=== PATIENT | female | born 1940 | race Caucasian/White ===

== ENCOUNTER 2016-06-02 15:24 | Emergency (ER) | payer MEDICARE, OTHER ==
[~2016-06-02] VITALS: Ht 154.9 cm; Wt 50.5 kg
[2016-06-02 15:24] VITALS: Ht 154.9 cm; Wt 50.5 kg
[~2016-06-02 15:24] MED LIST: ALEN70TA48 PO; ASCO-324 PO; CALCIUM LIQUID PO; MAGN250T PO; ONDA4TAB4 PO
--- OUTSIDE RECORDS SUMMARY | 2016-06-02 15:32 | XMS REPORT | Continuity of Care Document ---
Author Author [facility] Organization [facility] Address Unknown Phone Unavailable Allergies Active Description Code Type Severity Reaction Onset Reported/Identified Relationship to Patient Clinical Status Yes No Known Allergies No Known Allergies Drug Allergy Unknown N/A 06/20/2015 Medications Problems Date Dx Coded Attending Type Code Diagnosis Diagnosed By 06/20/2015 Cate Madera MD E78.5 HYPERLIPIDEMIA, UNSPECIFIED 06/20/2015 Cate Madera MD E83.39 OTHER DISORDERS OF PHOSPHORUS METABOLISM 06/20/2015 Cate Madera MD E83.42 HYPOMAGNESEMIA 06/20/2015 Cate Madera MD E83.51 HYPOCALCEMIA 06/20/2015 Cate Madera MD E87.1 HYPO-OSMOLALITY AND HYPONATREMIA 06/20/2015 Cate Madera MD E87.6 HYPOKALEMIA 06/20/2015 Cate Madera MD G93.6 CEREBRAL EDEMA 06/20/2015 Cate Madera MD I61.9 NONTRAUMATIC INTRACEREBRAL HEMORRHAGE, UNSPECIFIED 06/20/2015 Cate Madera MD R11.2 NAUSEA WITH VOMITING, UNSPECIFIED 06/20/2015 Cate Madera MD R73.9 HYPERGLYCEMIA, UNSPECIFIED 07/26/2015 Jeanie Gay MD P F G93.6 CEREBRAL EDEMA 07/26/2015 Jeanie Gay MD P F I10 ESSENTIAL (PRIMARY) HYPERTENSION 07/26/2015 Jeanie Gay MD P F I61.1 NONTRAUMATIC INTCRBL 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, COR 07/26/2015 Jeanie Gay MD P F M19.90 UNSPECIFIED OSTEOARTHRITIS, UNSPECIFIED SITE 07/26/2015 Victor Hugo HERRERA, Jeanie P A R51 HEADACHE 07/26/2015 Jeanie Gay MD P F Z86.73 PRSNL HX OF TIA (TIA), 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 Procedures Code Description Performed By Performed On [id number] EXCISION OF BRAIN, OPEN APPROACH, DIAGNOSTIC Landon Ayon MD 07/26/2015 [id number] EXTIRPATION OF MATTER FROM BRAIN, OPEN APPROACH Landon Ayon MD 07/26/2015 59RR55M INSERTION OF INFUSION DEV INTO SUP VENA CAVA, ETELVINA Gay MD, Jeanie P 07/26/2015 Results Test Result Range PROTHROMBIN TIME WITH INR - 06/20/15 19:21 INTERNATIONAL NORMAL RATIO 1.3 0.9-1.1 PROTHROMBIN TIME 14.4 sec 9.3-12.2 CBC W/DIFF - 06/21/15 04:26 GRANULOCYTE # 4.7 k/cumm 2.0-9.0 GRANULOCYTE % 69 % 50-75 LYMPHOCYTE # 1.1 k/cumm 1.0-4.0 LYMPHOCYTE % 17 % 20-30 MEAN CELL HGB 32.3 pg 27.0-33.0 MEAN CELL HGB CONCENTRATION 35.3 g/dL 32.0-37.0 MEAN CELL VOLUME 91.5 fl 80.0-100.0 MONOCYTE # 1.0 k/cumm 0.1-1.0 MONOCYTE % 14 % 4-6 RED BLOOD CELL 3.65 m/cumm 4.00-6.00 RED CELL DISTRIBUTION WIDTH 12.2 % 11.0- 15.6 WHITE BLOOD CELL 6.9 k/cumm 5.0-10.0 HEMOGLOBIN 11.8 gm/dL 12.0-16.0 HEMATOCRIT 33.4 % 37.0-47.0 PLATELET COUNT 213 k/cumm 150-400 METABOLIC PANEL, BASIC - 06/21/15 04:26 POTASSIUM 2.8 mmol/L 3.5-5.3 EST GFR (MDRD) > 60 mL/min > 59 ANION GAP 12 mmol/L 5-15 EST CrCl (CG) > 60 mL/min > 59 GLUCOSE 79 mg/dL 70-99 CALCIUM 7.8 mg/dL 8.5-10.1 BLOOD UREA NITROGEN 9 mg/dL 7-20 CREATININE 0.4 mg/dL 0.6-1.0 SODIUM 135 mmol/L 135-148 CHLORIDE 99 mmol/L 98-110 CARBON DIOXIDE 24 mmol/L 21-32 GLUCOSE (POC) - 06/21/15 15:40 GLUCOSE (POC) 288 mg/dL 70-99 GLUCOSE (POC) - 06/21/15 15:47 GLUCOSE (POC) 300 mg/dL 70-99 GLUCOSE (POC) - 06/21/15 16:51 GLUCOSE (POC) 262 mg/dL 70-99 HEMOGLOBIN A1C - 06/21/15 17:10 HEMOGLOBIN A1C 5.4 % < 5.7 GLUCOSE (POC) - 06/21/15 19:41 GLUCOSE (POC) 179 mg/dL 70-99 METABOLIC PANEL, BASIC - 06/22/15 06:28 POTASSIUM 3.4 mmol/L 3.5-5.3 EST GFR (MDRD) > 60 mL/min > 59 ANION GAP 10 mmol/L 5-15 EST CrCl (CG) 60 mL/min > 59 GLUCOSE 106 mg/dL 70-99 CALCIUM 8.2 mg/dL 8.5-10.1 BLOOD UREA NITROGEN 8 mg/dL 7-20 CREATININE 0.6 mg/dL 0.6-1.0 SODIUM 138 mmol/L 135-148 CHLORIDE 103 mmol/L 98-110 CARBON DIOXIDE 25 mmol/L 21-32 PHOSPHORUS - 06/22/15 06:28 PHOSPHORUS 1.5 mg/dL 2.5-4.9 MAGNESIUM - 06/22/15 06:28 MAGNESIUM 1.6 mg/dL 1.8-2.4 LIPID PANEL - 06/22/15 06:28 CHOLESTEROL/HDL RATIO 2.7 < 5.0 LDL CHOLESTEROL 98 mg/dL < 100 VLDL CHOLESTEROL 11 mg/dL < 30 TRIGLYCERIDES 54 mg/dL < 150 CHOLESTEROL 173 mg/dL < 200 HDL CHOLESTEROL 64 mg/dL > 39 GLUCOSE (POC) - 06/22/15 10:54 GLUCOSE (POC) 136 mg/dL 70-99 GLUCOSE (POC) - 06/22/15 15:20 GLUCOSE (POC) 131 mg/dL 70-99 GLUCOSE (POC) - 06/22/15 19:56 GLUCOSE (POC) 136 mg/dL 70-99 GLUCOSE (POC) - 06/23/15 05:23 GLUCOSE (POC) 94 mg/dL 70-99 GLUCOSE (POC) - 06/23/15 09:58 GLUCOSE (POC) 76 mg/dL 70-99 CBC - 06/23/15 13:10 MEAN CELL HGB 31.8 pg 27.0-33.0 MEAN CELL HGB CONCENTRATION 33.9 g/dL 32.0-37.0 MEAN CELL VOLUME 93.8 fl 80.0-100.0 RED BLOOD CELL 4.06 m/cumm 4.00-6.00 RED CELL DISTRIBUTION WIDTH 12.9 % 11.0- 15.6 WHITE BLOOD CELL 7.6 k/cumm 5.0-10.0 HEMOGLOBIN 12.9 gm/dL 12.0-16.0 HEMATOCRIT 38.1 % 37.0-47.0 PLATELET COUNT 257 k/cumm 150-400 RENAL FUNCTION PANEL - 06/23/15 13:10 POTASSIUM 3.6 mmol/L 3.5-5.3 EST GFR (MDRD) > 60 mL/min > 59 ANION GAP 11 mmol/L 5-15 EST CrCl (CG) > 60 mL/min > 59 GLUCOSE 84 mg/dL 70-99 CALCIUM 8.6 mg/dL 8.5-10.1 BLOOD UREA NITROGEN 7 mg/dL 7-20 CREATININE 0.6 mg/dL 0.6-1.0 SODIUM 136 mmol/L 135-148 CHLORIDE 98 mmol/L 98-110 CARBON DIOXIDE 27 mmol/L 21-32 ALBUMIN 3.3 gm/dL 3.4-5.0 PHOSPHORUS 3.4 mg/dL 2.5-4.9 MAGNESIUM - 06/23/15 13:10 MAGNESIUM 2.1 mg/dL 1.8-2.4 CBC W/DIFF - 07/27/15 01:57 GRANULOCYTE # 4.9 k/cumm 2.0-9.0 GRANULOCYTE % 73 % 50-75 LYMPHOCYTE # 1.1 k/cumm 1.0-4.0 LYMPHOCYTE % 16 % 20-30 MEAN CELL HGB 32.5 pg 27.0-33.0 MEAN CELL HGB CONCENTRATION 34.6 g/dL 32.0-37.0 MEAN CELL VOLUME 94.1 fl 80.0-100.0 MONOCYTE # 0.7 k/cumm 0.1-1.0 MONOCYTE % 10 % 4-6 RED BLOOD CELL 3.75 m/cumm 4.00-6.00 RED CELL DISTRIBUTION WIDTH 13.4 % 11.0- 15.6 WHITE BLOOD CELL 6.6 k/cumm 5.0-10.0 HEMOGLOBIN 12.2 gm/dL 12.0-16.0 HEMATOCRIT 35.3 % 37.0-47.0 PLATELET COUNT 236 k/cumm 150-400 PROTHROMBIN TIME WITH INR - 07/27/15 01:57 INTERNATIONAL NORMAL RATIO 1.0 0.9-1.1 PROTHROMBIN TIME 10.9 sec 9.3-12.2 METABOLIC PANEL, COMPREHN - 07/27/15 01:57 POTASSIUM 4.1 mmol/L 3.5-5.3 EST GFR (MDRD) > 60 mL/min > 59 ANION GAP 12 mmol/L 5-15 EST CrCl (CG) 60 mL/min > 59 GLUCOSE 104 mg/dL 70-99 CALCIUM 8.2 mg/dL 8.5-10.1 BLOOD UREA NITROGEN 17 mg/dL 7-20 CREATININE 0.6 mg/dL 0.6-1.0 SODIUM 134 mmol/L 135-148 CHLORIDE 101 mmol/L 98-110 AST/SGOT 14 Units/L 10-37 ALT/SGPT 16 Units/L < 66 CARBON DIOXIDE 21 mmol/L 21-32 TOTAL PROTEIN 6.9 gm/dL 6.4-8.2 ALBUMIN 3.3 gm/dL 3.4-5.0 BILI TOTAL 1.1 mg/dL 0.0-1.0 ALKALINE PHOSPHATASE TOTAL 59 IU/L 45- 117 PHOSPHORUS - 07/27/15 01:57 PHOSPHORUS 3.3 mg/dL 2.5-4.9 MAGNESIUM - 07/27/15 01:57 MAGNESIUM 2.1 mg/dL 1.8-2.4 TROPONIN I - 07/27/15 01:57 TROPONIN I < 0.02 ng/mL < 0.07 LIPID PANEL - 07/27/15 02:15 CHOLESTEROL/HDL RATIO 2.4 < 5.0 LDL CHOLESTEROL 120 mg/dL < 100 VLDL CHOLESTEROL 10 mg/dL < 30 TRIGLYCERIDES 52 mg/dL < 150 CHOLESTEROL 220 mg/dL < 200 HDL CHOLESTEROL 90 mg/dL > 39 MRSA SURVEILLANCE SCREEN - 07/27/15 04:38 Microbiology GLUCOSE (POC) - 07/27/15 04:45 GLUCOSE (POC) 100 mg/dL 70-99 UR DRUGS OF ABUSE SCREEN - 07/27/15 12:03 UR AMPHETAMINES SCREEN NEG (<1000 ng/mL) NEGATIVE UR BARBITURATE SCREEN NEG (< 200 ng/mL) NEGATIVE DRUGS OF ABUSE SCREEN COMMENT UR OPIATES SCREEN NEG (< 300 ng/mL) NEGATIVE UR PHENCYCLIDINE (PCP) SCREEN NEG (< 25 ng/mL) NEGATIVE UR CANNABINOIDS (THC) SCREEN NEG (< 50 ng/mL) NEGATIVE UR COCAINE METABOLITE SCREEN NEG (< 300 ng/mL) NEGATIVE UR METHADONE SCREEN NEG (< 300 ng/mL) NEGATIVE UR BENZODIAZEPINE SCREEN NEG (< 200 ng/mL) NEGATIVE GLUCOSE (POC) - 07/27/15 14:58 GLUCOSE (POC) 130 mg/dL 70-99 JOSÉ COMPREHENSIVE PROFILE - 07/27/15 15:00 AB CHROMATIN <0.2 AI 0.0-0.9 AB DIGITAL X RAY SERVICE ENGINEER <0.2 AI 0.0-0.9 AB SM <0.2 AI 0.0-0.9 AB SSA < 0.2 AI 0.0-0.9 AB SSB < 0.2 AI 0.0-0.9 AB ANTI-CENTROMERE B <0.2 AI 0.0-0.9 AB DNA DOUBLE STRAND < 1 IU/mL 0-9 AB SCL-70 <0.2 AI 0.0-0.9 AB SHARONDA-1 <0.2 AI 0.0-0.9 JOSÉ COMMENT Note () C REACTIVE PROTEIN - 07/27/15 16:06 C REACTIVE PROTEIN 14.3 mg/L < 8.0 SED RATE - 07/27/15 16:06 SED RATE 20 mm/hr 0-15 TROPONIN I - 07/27/15 18:46 TROPONIN I 0.02 ng/mL < 0.07 GLUCOSE (POC) - 07/27/15 19:07 GLUCOSE (POC) 91 mg/dL 70-99 LACTIC ACID - 07/27/15 21:29 LACTIC ACID 1.8 mmol/L 0.5-2.0 GLUCOSE (POC) - 07/28/15 00:31 GLUCOSE (POC) 117 mg/dL 70-99 CBC - 07/28/15 03:23 MEAN CELL HGB 32.6 pg 27.0-33.0 MEAN CELL HGB CONCENTRATION 34.0 g/dL 32.0-37.0 MEAN CELL VOLUME 95.9 fl 80.0-100.0 RED BLOOD CELL 3.16 m/cumm 4.00-6.00 RED CELL DISTRIBUTION WIDTH 13.6 % 11.0- 15.6 WHITE BLOOD CELL 5.7 k/cumm 5.0-10.0 HEMOGLOBIN 10.3 gm/dL 12.0-16.0 HEMATOCRIT 30.3 % 37.0-47.0 PLATELET COUNT 224 k/cumm 150-400 METABOLIC PANEL, BASIC - 07/28/15 03:23 POTASSIUM 3.9 mmol/L 3.5-5.3 EST GFR (MDRD) > 60 mL/min > 59 ANION GAP 8 mmol/L 5-15 EST CrCl (CG) 60 mL/min > 59 GLUCOSE 110 mg/dL 70-99 CALCIUM 7.8 mg/dL 8.5-10.1 BLOOD UREA NITROGEN 18 mg/dL 7-20 CREATININE 0.6 mg/dL 0.6-1.0 SODIUM 140 mmol/L 135-148 CHLORIDE 110 mmol/L 98-110 CARBON DIOXIDE 22 mmol/L 21-32 PHOSPHORUS - 07/28/15 03:23 PHOSPHORUS 2.5 mg/dL 2.5-4.9 MAGNESIUM - 07/28/15 03:23 MAGNESIUM 1.8 mg/dL 1.8-2.4 TROPONIN I - 07/28/15 03:23 TROPONIN I 0.02 ng/mL < 0.07 GLUCOSE (POC) - 07/28/15 06:09 GLUCOSE (POC) 90 mg/dL 70-99 TROPONIN I - 07/28/15 10:37 TROPONIN I 0.02 ng/mL < 0.07 GLUCOSE (POC) - 07/28/15 10:40 GLUCOSE (POC) 101 mg/dL 70-99 GLUCOSE (POC) - 07/28/15 15:34 GLUCOSE (POC) 70 mg/dL 70-99 CBC - 07/29/15 04:57 MEAN CELL HGB 31.9 pg 27.0-33.0 MEAN CELL HGB CONCENTRATION 33.7 g/dL 32.0-37.0 MEAN CELL VOLUME 94.8 fl 80.0-100.0 RED BLOOD CELL 3.29 m/cumm 4.00-6.00 RED CELL DISTRIBUTION WIDTH 13.7 % 11.0- 15.6 WHITE BLOOD CELL 8.6 k/cumm 5.0-10.0 HEMOGLOBIN 10.5 gm/dL 12.0-16.0 HEMATOCRIT 31.2 % 37.0-47.0 PLATELET COUNT 219 k/cumm 150-400 METABOLIC PANEL, BASIC - 07/29/15 04:57 POTASSIUM 3.1 mmol/L 3.5-5.3 EST GFR (MDRD) > 60 mL/min > 59 ANION GAP 9 mmol/L 5-15 EST CrCl (CG) > 60 mL/min > 59 GLUCOSE 106 mg/dL 70-99 CALCIUM 7.7 mg/dL 8.5-10.1 BLOOD UREA NITROGEN 6 mg/dL 7-20 CREATININE 0.5 mg/dL 0.6-1.0 SODIUM 139 mmol/L 135-148 CHLORIDE 106 mmol/L 98-110 CARBON DIOXIDE 24 mmol/L 21-32 POTASSIUM - 07/29/15 18:23 POTASSIUM 4.7 mmol/L 3.5-5.3 THYROID STIM HORMONE (TSH) - 07/30/15 13:42 THYROID STIM HORMONE (TSH) 0.88 uIU/mL 0.34-4.82 METABOLIC PANEL, BASIC - 07/30/15 13:47 POTASSIUM 3.9 mmol/L 3.5-5.3 EST GFR (MDRD) > 60 mL/min > 59 ANION GAP 8 mmol/L 5-15 EST CrCl (CG) 60 mL/min > 59 GLUCOSE 125 mg/dL 70-99 CALCIUM 8.2 mg/dL 8.5-10.1 BLOOD UREA NITROGEN 11 mg/dL 7-20 CREATININE 0.6 mg/dL 0.6-1.0 SODIUM 138 mmol/L 135-148 CHLORIDE 105 mmol/L 98-110 CARBON DIOXIDE 25 mmol/L 21-32 MAGNESIUM - 07/30/15 13:47 MAGNESIUM 2.0 mg/dL 1.8-2.4 TROPONIN I - 07/30/15 13:47 TROPONIN I < 0.02 ng/mL < 0.07 CALCIUM IONIZED - 08/01/15 04:31 CALCIUM IONIZED 4.5 mg/dL 4.5-5.3 CBC W/DIFF - 08/01/15 04:37 EOSINOPHIL # 0.1 k/cumm 0.1-0.5 EOSINOPHIL % 1 % 2-4 GRANULOCYTE # 4.2 k/cumm 2.0-9.0 GRANULOCYTE % 69 % 50-75 LYMPHOCYTE # 1.0 k/cumm 1.0-4.0 LYMPHOCYTE % 17 % 20-30 MEAN CELL HGB 31.5 pg 27.0-33.0 MEAN CELL HGB CONCENTRATION 33.0 g/dL 32.0-37.0 MEAN CELL VOLUME 95.5 fl 80.0-100.0 MONOCYTE # 0.8 k/cumm 0.1-1.0 MONOCYTE % 13 % 4-6 RED BLOOD CELL 3.11 m/cumm 4.00-6.00 RED CELL DISTRIBUTION WIDTH 13.8 % 11.0- 15.6 WHITE BLOOD CELL 6.1 k/cumm 5.0-10.0 HEMOGLOBIN 9.8 gm/dL 12.0-16.0 HEMATOCRIT 29.7 % 37.0-47.0 PLATELET COUNT 269 k/cumm 150-400 RENAL FUNCTION PANEL - 08/01/15 04:37 POTASSIUM 3.5 mmol/L 3.5-5.3 EST GFR (MDRD) > 60 mL/min > 59 ANION GAP 8 mmol/L 5-15 EST CrCl (CG) > 60 mL/min > 59 GLUCOSE 91 mg/dL 70-99 CALCIUM 8.2 mg/dL 8.5-10.1 BLOOD UREA NITROGEN 5 mg/dL 7-20 CREATININE 0.4 mg/dL 0.6-1.0 SODIUM 141 mmol/L 135-148 CHLORIDE 107 mmol/L 98-110 CARBON DIOXIDE 26 mmol/L 21-32 ALBUMIN 2.7 gm/dL 3.4-5.0 PHOSPHORUS 3.7 mg/dL 2.5-4.9 MAGNESIUM - 08/01/15 04:37 MAGNESIUM 2.3 mg/dL 1.8-2.4 Encounters ACCT No. Visit Date/Time Discharge Status Pt. Type Provider Facility Loc./Unit Complaint [id number] 09/11/2015 15:46:00 2015 15:46:00 DIS Outpatient Gabo HERRERA, Landon [facility] W.DOMINGO [id number] 07/26/2015 23:45:00 2015 16:45:00 DIS Inpatient Victor Hugo HERRERA, Jeanie Philip [facility] W.10TN [id number] 06/20/2015 17:10:00 2015 19:19:00 DIS Inpatient Santy HERRERA, Cate Day [facility] W.10TS
--- NOTE | 2016-06-02 15:36 | NUR ---
PROVIDER DR. HIDALGO IN ROOM WITH PT.
--- NOTE | 2016-06-02 15:39 | NUR ---
CT PT TO CT PER COT.
--- NOTE | 2016-06-02 15:40 | ERPDOC ---
Departure Disposition Decision Date: Jun 02, 2016 Disposition Decision Time: 16:59 Disposition: 01 DISCHARGED HOME, SELF-CARE Impression Impression Impression: Primary Impression: Episode of syncope Syncope type: unspecified Qualified Codes: R55 - Syncope and collapse Severity: Moderate Condition: Improved Seen By: Physician only Referrals: INES QUEEN DO (Family) Follow-up for reevaluation MOHAMUD TURNER MD Be in Dr. Turner's on his office tomorrow at 9:30 AM Patient Instructions: Syncope (ED) Problems/Meds/Labs Reviewed?: Yes Medications reviewed and manag: Yes Follow up care ordered?: Yes Mental Status: Alert HPI - General Medical General Chief Complaint: Syncope Stated Complaint: PASSED OUT Time Seen by Provider: 15:40 Source: patient Exam Limitations: no limitations HPI - General Medical Initial Comments Patient is a 75-year-old female, approximately 3 hours prior to arrival patient had a sudden onset of nausea and dizziness while trying to walk in the kitchen, she then "passed out" fell forward striking her head on the cabinet. Patient states he went into the room she was out for several seconds and then was awake and oriented and is normal. The delay of 3 hours was because patient felt she needed to take a bath and clean herself up before she came in. Patient had no postictal state, no incontinence of bowel or bladder. Patient brought to the ER for evaluation no current complaints Occurred At: home Onset: Rapid Duration: other (seconds) Allergies: Coded Allergies: No Known Allergies (Unverified , 06/02/16) Past History Past Medical History Neurological: CVA Musculoskeletal: other Surgical History General: hernia Joint: hip Vaccines Hx Influenza Vaccination: Yes (February 2012) Hx Pneumococcal Vaccination: Yes (February 2011) Hx Tetanus Diptheria: No Social History Smoking Status: Never smoker Substance Use Type: does not use Alcohol Intake: none Review of Systems Constitutional Constitutional: dizziness, weakness, DENIES: appetite decrease, chills, fever Eyes Vision: DENIES: blurring, double vision, loss of visual medrano ENMT Sinuses: DENIES: congestion, rhinorrhea Mouth/Throat: DENIES: scratchy throat, sore throat Cardiovascular Cardiac: DENIES: chest pain, dyspnea on exertion Rhythm/Rate: DENIES: irregular beat, palpitations, tachycardia Pulmonary Respiratory: DENIES: cough, dyspnea, sputum, tachypnea GI Upper Abdomen: nausea, DENIES: pain, vomiting Lower Abdomen: DENIES: constipation, diarrhea, pain General: DENIES: frequency, urgency Musculoskeletal General: DENIES: cramps, pain, weakness Integumentary Skin: DENIES: color change, itching, rash Endocrine Endocrine: DENIES: heat/cold intolerance Hematologic/Lymphatic Hematologic/Lymphatic: DENIES: anemia Physical Exam General General Nourishment: well nourished, well developed General Body Habitus: well groomed Vitals and Pain Weight: Kilograms: Height (feet): 5 Height (inches): 1 Triage Pain Scale: RN VS reviewed by Provider: Yes Eyes (brief) Eyes Brief: found: EOMI, PERRL ENMT (brief) ENMT Brief: FOUND: mucosa moist, normal dentition, NOT FOUND: nasal erythema, pharnyx erythema, tonsillar deviation Neck (brief) Neck: NOT FOUND: adenopathy, spasm, tenderness Respiratory (brief) Respiratory: FOUND: clear all medrano, equal bilaterally, NOT FOUND: rales, wheezes Cardiovascular (brief) Cardiac: FOUND: regular rate, regular rhythm Capillary Refill: <2 sec Abdomen (brief) Abdominal Brief: FOUND: bowel normo active x4, soft, NOT FOUND: tender Lymphatic (brief) Lymphatic Brief: NOT FOUND: adenopathy Musculoskeletal (brief) Musculoskeletal Brief: NOT FOUND: spasm, tenderness Integumentary (brief) Integumentary Brief: FOUND: dry, pink, warm Neurologic Mental Status: FOUND: alert, oriented GCS Adult : GCS Eye Opening: (4)Spontaneous GCS Verbal: (5)Oriented GCS Motor: (6)Obeys Commands GCS Total: 15 Cranial Nerves: FOUND: other (cranial nerve II through XII intact) Motor : Motor Side: bilateral Motor Location: biceps, triceps, wrist, finger extensors, finger flexors, quadriceps, hamstring, foot extension, foot flexion, orchestra conductor strength Motor Degree: 5 Sensation: FOUND: soft touch intact x4 ext DTR's : DTR Side: bilateral DTR Location: Biceps, Patellar DTR Grade: 2+ Differential Diagnoses Considering: Acute NE, Hypo/Hyperkalemia, Hypo/Hypernatremia, Intracranial Hemorrhage, Other (cardiac dysrhythmia, bradycardia, orthostatic hypotension) Progress Results/Orders Orders Procedure Category Date Status Time EKG EKG 06/02/16 Taken 15:28 Ct Head W/O Contrast CT 06/02/16 Resulted 15:37 Orthostatic Bp/Pulse EDM 06/02/16 Transmitted 15:51 Cbc W/Auto LAB 06/02/16 Complete Diff-Reflex Manual 15:51 Cmp - Comprehensive LAB 06/02/16 Complete Metabolic 15:51 Troponin I W LAB 06/02/16 Complete Hemolysis Index 15:51 Ua, Dip Wreflex LAB 06/02/16 Complete Microsc & Decorative Engraver Apprentice 15:51 Lab Results Laboratory Tests Test 06/02/16 16:06 06/02/16 16:12 Urine Collection Type Voided-not cc-midstr Urine Color Yellow Urine Turbidity Clear Urine pH 8.0 Urine Specific [place] 1.010 Urine Protein Negative Urine Glucose (UA) Negative Urine Ketones Negative Urine Blood Negative Urine Nitrite Negative Urine Bilirubin Negative Urine Urobilinogen 0.2EU/DL Urine Leukocyte Esterase Negative Urinalysis Comment Microscopic not ind. White Blood Count 9.6T/MM3 Red Blood Count 4.24M/MM3 Hemoglobin 13.6GM/DL Hematocrit 41.4% Mean Corpuscular Volume 97.6UM3 Mean Corpuscular Hemoglobin 32.1UUG Mean Corpuscular Hemoglobin Concent 32.9GM/DL RDW Standard Deviation 46.0FL Platelet Count 261T/MM3 Mean Platelet Volume 10.8UM3 Immature Granulocyte % (Auto) 0.1% Neutrophils (%) (Auto) 79.7% Lymphocytes (%) (Auto) 12.6% Monocytes (%) (Auto) 6.5% Eosinophils (%) (Auto) 1.0% Basophils (%) (Auto) 0.1% Absolute Immature Granulocyte (auto 0.01T/MM3 Absolute Neutrophils (auto) 7.7T/MM3 Absolute Lymphocytes (auto) 1.2T/MM3 Absolute Monocytes (auto) 0.6T/MM3 Absolute Eosinophils (auto) 0.1T/MM3 Absolute Basophils (auto) 0.0T/MM3 Turbidity < 20 Sodium Level 139MEQ/L Potassium Level 4.4MEQ/L Chloride Level 103MEQ/L Carbon Dioxide Level 26MEQ/L Anion Gap 10MEQ/L Blood Urea Nitrogen 19.0MG/DL Creatinine 0.6MG/DL Glomerular Filtration Rate Calc 98 BUN/Creatinine Ratio 32RATIO Glucose Level 97MG/DL Calculated Osmolality 270MOSM/KG Calcium Level 9.0MG/DL Total Bilirubin 0.60MG/DL Icterus Index < 2 Aspartate Amino Transf (AST/SGOT) 30U/L Alanine Aminotransferase (ALT/SGPT) 32U/L Alkaline Phosphatase 77U/L Troponin I < 0.012ng/ml Total Protein 8.1G/DL Albumin 4.5G/DL Globulin 3.6G/DL Albumin/Globulin Ratio 1.3RATIO Chemistry Specimen Hemolysis < 15 Progress Progress Discussed case with Dr. Turner's group, okay to discharge patient home they will see patient in the office tomorrow EKG EKG : Rate: 60-100 Rhythm: sinus [place]: normal QRS: normal Intervals: normal ST/T: non-specific changes Interpreted by: signing physician CT CT : CT: Head no contrast Interpretation: Normal, Reviewed Written Report JOCELIN HIDALGO MD Jun 02, 2016 15:40
--- NOTE | 2016-06-02 15:48 | NUR ---
CT PT RETURNED FROM CT.
--- NOTE | 2016-06-02 15:58 | DI ---
Indication: ITS.REASON: syncopal episode, history of prior bleeding PROCEDURE: CT HEAD W/O CONTRAST: Encounter: Initial Comparison: July 26, 2015 Technique: Axial CT images through the head were performed without contrast. Iterative Reconstruction dose reducing technique was utilized. FINDINGS: Sequela of prior right frontal lobe hemorrhage with encephalomalacia, postcraniotomy changes with right frontal volume loss and prominence of the frontal horn of the right lateral ventricle. There is also evidence of a chronic appearing left occipital lobe infarct with volume loss and encephalomalacia. Scattered low-attenuation foci are again seen in both frontal lobes elsewhere with a similar appearance to the prior study. Mild to moderate generalized atrophy. No acute intracranial hemorrhage identified. No midline shift. No acute calvarial fractures. Paranasal sinuses are grossly clear as are the mastoid air cells. Impression: Bilateral areas of prior infarct along with sequela of prior significant large right frontal lobe hemorrhage. No acute territorial stroke or acute intracranial hemorrhage identified currently. .
--- OUTSIDE RECORDS SUMMARY | 2016-06-02 15:59 | XMS REPORT | Continuity of Care Document ---
Author Author [facility] Organization [facility] Address Unknown Phone Unavailable Allergies Active Description [...] Procedures Code Description Performed By Performed On 85T62BS EXCISION OF BRAIN, OPEN APPROACH, DIAGNOSTIC Landon Ayon MD 07/26/2015 [id number] EXTIRPATION OF MATTER FROM BRAIN, OPEN APPROACH Landon Ayon MD 07/26/2015 [id number] INSERTION OF INFUSION DEV INTO SUP VENA [...] 15:00 AB CHROMATIN <0.2 AI 0.0-0.9 AB WHISKEY FILTERER <0.2 AI 0.0-0.9 AB SM <0.2 AI [...] Status Pt. Type Provider Facility Loc./Unit Complaint [id number] 09/11/2015 15:46:00 2015 15:46:00 DIS Outpatient Gabo HERRERA, Landon [facility] W.DOMINGO [id number] 07/26/2015 23:45:00 2015 16:45:00 DIS Inpatient Victor Hugo HERRERA, Jeanie Philip [facility] W.10TN [id number] 06/20/2015 17:10:00 2015 19:19:00 DIS Inpatient Santy HERRERA, Cate Day [facility] W.10TS
--- NOTE | 2016-06-02 16:00 | NUR ---
ORTHOSTATICS PT DENIES ANY VERTIGO OR WEAKNESS WITH ORTHOSTATIC V/S.
--- NOTE | 2016-06-02 16:11 | NUR ---
LAB LAB IN ROOM WITH PT.
[2016-06-02 16:18] LABS: BASOPHILS % (AUTO) 0.1 % (0-2); EOSINOPHILS # (AUTO) 0.1 T/MM3 (0-0.5); HCT - HEMATOCRIT 41.4 % (36-46); HGB - HEMOGLOBIN 13.6 GM/DL (12-16); IMMATURE GRANULOCYTE # (AUTO) 0.01 T/MM3 (0.00-0.03); IMMATURE GRANULOCYTE % (AUTO) 0.1 % (0.0-0.5); LYMPHOCYTES # (AUTO) 1.2 T/MM3 (1-4.8); LYMPHOCYTES % (AUTO) 12.6 % (23-45); MEAN CORPUSCULAR HGB 32.1 UUG (26-34); MEAN CORPUSCULAR HGB CONC(MCHC 32.9 GM/DL (31-37); MEAN CORPUSCULAR VOLUME 97.6 UM3 (80-100); MEAN PLATELET VOLUME 10.8 UM3 (9.4-12.4); MONOCYTES # (AUTO) 0.6 T/MM3 (0-0.8); MONOCYTES % (AUTO) 6.5 % (0-9.0); NEUTROPHILS #(AUTO)-ABSOLUTE 7.7 T/MM3 (1.8-7.7); NEUTROPHILS % (AUTO) 79.7 % (33-66); RED BLOOD COUNT 4.24 M/MM3 (4.00-5.20); WBC - WHITE BLOOD COUNT 9.6 T/MM3 (4.5-11.0)
[2016-06-02 16:18] LABS: BLOOD, URINE NEGATIVE (NEGATIVE); COLOR,URINE YELLOW (YELLOW); LEUKOCYTE ESTERASE ,URINE NEGATIVE (NEGATIVE); NITRITE,URINE NEGATIVE (NEGATIVE); UROBILINOGEN,URINE 0.2 EU/DL (NORMAL)
[2016-06-02] MEDS ORDERED: CALC-481 PO (16:21)
[2016-06-02] MEDS ORDERED: CHOL100055 PO (16:21)
[2016-06-02] MEDS ORDERED: CRAN1TAB6 PO (16:21)
[2016-06-02 16:37] LABS: ALBUMIN 4.5 G/DL (3.5-5.0); ALBUMIN/GLOBULIN RATIO 1.3 RATIO (1.1-2.2); ALKALINE PHOSPHATASE 77 U/L (38-126); ALT (SGPT) 32 U/L (9-52); ANION GAP 10 MEQ/L (5-15); AST (SGOT) 30 U/L (14-36); BUN/CREATININE RATIO 32 RATIO (6-26); CHLORIDE 103 MEQ/L (98-107); CO2 - CARBON DIOXIDE 26 MEQ/L (22-30); CREATININE 0.6 MG/DL (0.7-1.2); GLOMERULAR FILTRATION RATE 98; GLUCOSE 97 MG/DL (65-110); POTASSIUM 4.4 MEQ/L (3.6-5); SODIUM 139 MEQ/L (134-144); TOTAL PROTEIN 8.1 G/DL (6.3-8.2)
--- NOTE | 2016-06-02 16:46 | NUR ---
PT STATUS PT CONTINUES TO DENY ANY COMPLAINTS AT THIS TIME. REAMINS IN ROOM WITH PT. CALL LIGHT IN REACH.
[2016-06-02 17:33] VITALS: BP 100/56; PULSE 79; RESP 15; TEMP 98; O2SAT 97
--- NOTE | 2016-06-02 17:33 | NUR ---
DEPART PT DRESSES SELF AND LEAVES AMBULATORY WITH SPOUSE AT THIS TIME. DISCHARGE INSTRUCTIONS ARE GIVEN AND UNDERSTANDING IS VOICED.
== END 2016-06-02 17:33 | disposition home or self-care (01) ==
LOC: ED 15:24
DX: R55 Syncope and collapse (principal); R42 Dizziness and giddiness; R53.1 Weakness; R11.0 Nausea
CPT/HCPCS: 36415; 80053; 81003; 84484; 85025; 93005

== ENCOUNTER → 2016-08-01 | Outpatient (CLI) | payer MEDICARE, OTHER ==
[~2016-08-01] MED LIST changes: +CALC-481 PO; -CALCIUM LIQUID PO; +CHOL100055 PO; +CRAN1TAB6 PO; -MAGN250T PO; -ONDA4TAB4 PO
== END ==
LOC: CATH.INJ 08:00
PROVIDERS: ATTEND Internal Medicine Cardiovascular Disease
DX: R69 Illness, unspecified (principal)